=== PATIENT | female | born 1990 | race Caucasian/White ===

== ENCOUNTER → 2024-05-08 | Outpatient (CLI) | payer OTHER | LOC: M RAD 16:49 | PROVIDERS: ATTEND Nurse Practitioner Family | DX: S99.912A Unspecified injury of left ankle, initial encounter (principal); W18.30XA Fall on same level, unspecified, initial encounter; Y92.009 Unspecified place in unspecified non-institutional (private) residence as the place of occurrence of the external cause ==

== ENCOUNTER → 2024-08-07 | Outpatient (CLI) | payer OTHER ==
[~2024-08-07] MED LIST: PROHANCE 279.3MG/ML 15ML VIAL ONE; PROHANCE 279.3MG/ML 5ML VIAL ONE
== END ==
LOC: M PLAIMG 13:37
PROVIDERS: ATTEND Nurse Practitioner
DX: Z91.89 Other specified personal risk factors, not elsewhere classified (principal); N63.20 Unspecified lump in the left breast, unspecified quadrant
CPT/HCPCS: A9576; C8908